=== PATIENT | female | born 1980 | race Caucasian/White ===

== ENCOUNTER 2023-12-29 08:31 | Emergency (ER) | payer OTHER, SELFPAY ==
[2023-12-29] VITALS (47 sets, daily range): BP systolic 101–127; BP diastolic 56–93; PULSE 67–96; RESP 12–31; TEMP 36.3; O2SAT 97–100
--- NOTE | ~2023-12-29 | XR_ITS ---
EXAMINATION: XR chest 2V DATE: 12/29/2023 09:06 INDICATION: Left chest pain. Hypotension and weakness. TECHNIQUE: PA and lateral views of the chest were obtained. COMPARISON: None FINDINGS: The lungs are clear with no focal airspace opacities, pulmonary edema, pleural effusion or pneumothor ax. The cardiomediastinal silhouette is normal. Cholecystectomy clips in right upper quadrant. Bilate ral breast implants. IMPRESSION: 1. No acute cardiopulmonary disease. Reviewed, dictated and finalized at location A.
--- NOTE | ~2023-12-29 | CT_ITS ---
Clinical Indication: Chest pain CT Scan of the Chest with Contrast: Technique: Contiguous sections were acquired throughout the chest after intravenous administration of 100 cc of Omnipaque 350. Dose reduction technique was used on this scan by utilizing automated expos ure control and iterative reconstruction technique. The dose-length product (DLP) was 259.15 mGy-cm. Findings: There is no evidence of any significant mediastinal, hilar or axillary lymphadenopathy. There is no f illing defect in the pulmonary arterial tree to suggest pulmonary embolus. There is no evidence of ao rtic dissection or aneurysm. There is no evidence of pleural or pericardial effusion. 3 mm fissural nodule in the left fissure noted. Lungs are otherwise clear. Images through the upper abdomen reveal no abnormalities. Impression: No evidence of pulmonary embolus, aortic dissection, or aortic aneurysm. No significant pulmonary abnormality. Reviewed, dictated and finalized at [facility]. Impression: No evidence of pulmonary embolus, aortic dissection, or aortic aneurysm. No significant pulmonary abnormality.
--- NOTE | 2023-12-29 08:33 | ECG_ITS ---
Measurements Intervals [place] Rate: 83 P: 56 CA: 138 QRS: 39 QRSD: 84 T: 44 QT: 360 QTc: 423 Interpretive Statements SINUS RHYTHM NORMAL ECG NO PREVIOUS ECG AVAILABLE FOR COMPARISON Electronically Signed On 12-29-2023 8:53:44 CDT by Mitul Self D.O.
--- NOTE | 2023-12-29 08:47 | PC.NURSE ---
Pt took ASA 325 at 0615 today for CP.
[2023-12-29 08:52] LABS: Basophils Absolute Auto 0.1 K/mm3 (0.0-0.1); Eosinophils Absolute Auto 0.2 K/mm3 (0-0.3); Eosinophils Percent Auto 2.3 % (0-4.4); Hematocrit 40.9 % (37.0-47.0); Hemoglobin 13.2 g/dL (12.0-15.0); Immature Granulocyte Absolute 0.01 K/mm3 (0.00-0.031); Immature Granulocyte Percent A 0.1 % (0-0.5); Lymphocytes Absolute Auto 2.87 K/mm3 (0.9-3.2); Lymphocytes Percent Auto 41.1 % (18.3-44.2); Mean Corpuscular HGB Conc 32.3 g/dl (32-36); Mean Corpuscular Hemoglobin 30.3 pg (26-34); Mean Platelet Volume 10.1 fl (7.4-10.4); Monocytes Absolute Auto 0.5 K/mm3 (0.1-0.6); Monocytes Percent Auto 6.9 % (2.6-8.5); Neutrophils Absolute Auto 3.4 K/mm3 (1.3-6.7); Neutrophils Percent Auto 48.6 % (45.5-73.1); Platelet Count Result 306 k/mm3 (150-375); Red Blood Count 4.35 M/mm3 (4.2-5.4); Red Cell Distribution Width 11.7 % (11.5-14.5)
[2023-12-29 09:02] LABS: Alanine Aminotransferase 43 U/L (6-35); Albumin Level 4.4 g/dL (3.5-5.1); Alkaline Phosphatase 63 U/L (38-126); Anion Gap 8 mmol/L (8-16); Aspartate Amino Transferase 37 U/L (14-36); Bilirubin,Total 0.7 mg/dL (0.2-1.3); Blood Urea Nitrogen 12 mg/dL (7-17); Calcium 9.4 mg/dL (8.4-10.2); Carbon Dioxide 22 mmol/L (22-30); Chloride 107 mmol/L (98-107); Estimated CRCL calculation 80 ml/min; Estimated Glomerular Filt Rate > 60; Glucose 97 mg/dL (65-110); Lipase 110 U/L (23-300); Potassium 3.7 mmol/L (3.4-5.0); Sodium 137 mmol/L (137-145)
[2023-12-29 09:03] LABS: INR 0.9; Prothrombin Time 12.6 Seconds (11.1-14.7)
[2023-12-29 09:04] LABS: Partial Thromboplastin Time 26.4 Seconds (22.3-36.8)
[2023-12-29 09:14] LABS: Troponin I < 0.012 ng/mL (0.000-0.034)
--- NOTE | 2023-12-29 09:37 | ED.CHESTPAIN ---
HPI - Chest Pain General Chief Complaint: Chest Pain Stated Complaint: chest pain Time Seen by Provider: 12/29/23 08:56 Source: patient Mode of arrival: ambulatory Limitations: no limitations History of Present Illness HPI narrative: Patient is a 43-year-old female who presents the ED with report of left-sided chest pain. Patient reports pain began around 6:00 a.m. this morning while she was getting ready for work. Pain present throughout her midsternal and left-sided chest, radiates into her left axillary region. Pain is intermittent, worse with movement, somewhat alleviated with rest but still intermittent sharp stabbing pains at rest. Reports tingling in her left upper extremity. Reports mild shortness of breath this morning, denies shortness breath currently. Denies recent cough or cold symptoms. Denies fevers. Denies lower extremity pain or swelling. Denies previous history of heart disease or blood clots. Related Data Allergies Allergy/AdvReac Type Severity Reaction Status Date / Time atropine Allergy Unknown Unknown Verified 12/29/23 11:30 dichloralphenazone Allergy Unknown MIGRAINE Verified 12/29/23 11:30 MED CAUSES SEIZURE - UNSURE OF DRUG diphenoxylate Allergy Unknown Unknown Verified 12/29/23 11:30 isometheptene Allergy Unknown MIGRAINE Verified 12/29/23 11:30 MED CAUSES SEIZURE - UNSURE OF DRUG sumatriptan Allergy Unknown MIGRAINE Verified 12/29/23 11:30 MED CAUSES SEIZURE - UNSURE OF DRUG Review of Systems Review of Systems: CONSTITUTIONAL: Denies fever, chills, or sweats. ENT: Denies rhinorrhea, congestion, sore throat. CARDIOVASCULAR: See HPI. RESPIRATORY: Denies cough or dyspnea. GASTROINTESTINAL: Denies abdominal pain, nausea, vomiting. NEUROLOGICAL: See HPI All systems reviewed & are unremarkable except as noted in HPI and below PMFSH Past Medical History Medical History Adult BMI 26.0-26.9 kg/sq m BMI 25.0-25.9,adult Establishing care with new doctor, encounter for History of appendicitis Polyuria Surgical History Surgical History History of breast augmentation History of cholecystectomy History of tubal ligation Family History Family History Father Alcoholic cirrhosis of liver Mother No problems noted. Sibling Lupus Depression Other Acute myocardial infarction Diabetes mellitus Family history of coronary artery disease Family history of lung cancer Hypertension Social History Social History Smoking status: Current every day smoker Tobacco type: e-cigarettes/vaping Second hand tobacco smoke exposure: Yes Smoking end date: 10/09/13 Alcohol intake: current Substance use: current Substance use type: marijuana Other substance usage details: edibles Do You Feel Safe in your Home?: Yes Lack of Transportation: No Lack of Food: Never True Current Housing: I Have Housing Concerned About Future Housing: No Difficulty Paying Gas/Electric Bills: No Difficulty Paying for Meds: No Currently Unemployed: No Education: High School Diploma/GED Difficulty w/ Childcare or Family Care: No Living arrangements: with family Occupation/Education: occupation 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 HEAD: Normocephalic, atraumatic. RESPIRATORY: Airway patent, respirations nonlabored. Clear to auscultation bilaterally, no rales, rhonchi, wheezing. No focal lung sounds. CARDIOVASCULAR: Regular rate and rhythm without murmurs, rubs, or gallops. ABDOMINAL: Soft, No tend
[2023-12-29] MEDS: ACETAMINOPHEN 500 MG TABLET 1000 MG PO (10:16)
[2023-12-29] MEDS: BELLADONNA ALK/PHENOB ELIX 10 ML, MAG HYDROX/ALUMINUM HYD/SIMETH 30 ML, LIDOCAINE HCL 2... PO (10:17)
--- NOTE | 2023-12-29 11:24 | ECG_ITS ---
Measurements Intervals [place] Rate: 68 P: 61 GA: 139 QRS: 46 QRSD: 84 T: 47 QT: 386 QTc: 411 Interpretive Statements SINUS RHYTHM BASELINE WANDER- III, V3-V6 NORMAL ECG COMPARED TO ECG 12/29/2023 08:39:10 NO SIGNIFICANT CHANGES Electronically Signed On 12-29-2023 11:51:33 CDT by Mitul Self D.O.
[2023-12-29] MEDS: diazePAM INJ (*CRX) 10 MG/2 ML SYRINGE 5 MG IV PUSH (11:34)
[2023-12-29 12:01] LABS: Troponin I < 0.012 ng/mL (0.000-0.034)
[2023-12-29] MEDS: methocarbamoL 500 MG TABLET 1000 MG PO (12:36)
--- NOTE | 2023-12-29 14:51 | ECG_ITS ---
Measurements Intervals [place] Rate: 72 P: 64 ME: 140 QRS: 56 QRSD: 72 T: 46 QT: 391 QTc: 430 Interpretive Statements SINUS RHYTHM WITH SINUS ARRHYTHMIA BASELINE ARTIFACT- I, II, III, AVL NORMAL ECG COMPARED TO ECG 12/29/2023 11:25:22 SINUS ARRHYTHMIA NOW PRESENT Electronically Signed On 12-30-2023 10:41:48 CDT by Mitul Self D.O.
[2023-12-29 15:41] LABS: Troponin I < 0.012 ng/mL (0.000-0.034)
== END 2023-12-29 14:00 | disposition home or self-care (01) ==
PROVIDERS: Preventive Medicine Aerospace Medicine; Emergency Provider Physician Assistant; PCP Family Medicine
DX: R07.89 Other chest pain (principal); S16.1XXA Strain of muscle, fascia and tendon at neck level, initial encounter; Z87.891 Personal history of nicotine dependence; Z90.49 Acquired absence of other specified parts of digestive tract; X58.XXXA Exposure to other specified factors, initial encounter
CPT/HCPCS: 36415; 71046; 71275; 80053; 83690; 84484; 85025; 85610; 85730; 93005; 96374; 99284; A9270; J3360; Q9967

== ENCOUNTER 2023-12-29 21:52 | Emergency (ER) | payer OTHER, SELFPAY ==
[2023-12-29 22:20] VITALS: BP 126/68; PULSE 82; RESP 17; TEMP 36.4; O2SAT 100
--- NOTE | 2023-12-30 01:36 | ED.EYEPROB ---
HPI - Eye Problem General Chief complaint: Eye Problems Stated complaint: B eye burning/redness Time Seen by Provider: 12/30/23 01:21 Source: patient Mode of arrival: ambulatory Limitations: no limitations History of Present Illness HPI Narrative: This is a 43 year old female that presents to the ER for evaluation of bilateral eye irritation tonight. Reports she has been having flares of this for the last couple of months. She has been seeing an eye doctor and has been on steroid drops with relief. She is out of her steroid. Has had worsening redness, tearing and pain tonight. Denies fevers, abnormal drainage or vision changes. Related Data Allergies Allergy/AdvReac Type Severity Reaction Status Date / Time atropine Allergy Unknown Unknown Verified 12/29/23 11:30 dichloralphenazone Allergy Unknown MIGRAINE Verified 12/29/23 11:30 MED CAUSES SEIZURE - UNSURE OF DRUG diphenoxylate Allergy Unknown Unknown Verified 12/29/23 11:30 isometheptene Allergy Unknown MIGRAINE Verified 12/29/23 11:30 MED CAUSES SEIZURE - UNSURE OF DRUG sumatriptan Allergy Unknown MIGRAINE Verified 12/29/23 11:30 MED CAUSES SEIZURE - UNSURE OF DRUG Review of Systems Review of Systems: CONSTITUTIONAL: Denies fever EYES: Reports redness and tearing. Denies visual changes All systems reviewed & are unremarkable except as noted in HPI and below PMFSH Past Medical History Medical History Adult BMI 26.0-26.9 kg/sq m BMI 25.0-25.9,adult Establishing care with new doctor, encounter for History of appendicitis Polyuria Surgical History Surgical History History of breast augmentation History of cholecystectomy History of tubal ligation Family History Family History Father Alcoholic cirrhosis of liver Mother No problems noted. Sibling Lupus Depression Other Acute myocardial infarction Diabetes mellitus Family history of coronary artery disease Family history of lung cancer Hypertension Social History Social History Smoking status: Current every day smoker Tobacco type: e-cigarettes/vaping Second hand tobacco smoke exposure: Yes Smoking end date: 10/09/13 Alcohol intake: current Substance use: current Substance use type: marijuana Other substance usage details: edibles Do You Feel Safe in your Home?: Yes Lack of Transportation: No Lack of Food: Never True Current Housing: I Have Housing Concerned About Future Housing: No Difficulty Paying Gas/Electric Bills: No Difficulty Paying for Meds: No Currently Unemployed: No Education: High School Diploma/GED Difficulty w/ Childcare or Family Care: No Living arrangements: with family Occupation/Education: occupation 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 HEAD: Normocephalic, atraumatic. EYES: PERRLA and EOMI. Bilateral conjunctival injection and tearing EXTREMITIES: Normal range of motion. No edema. SKIN: Warm, dry, no rash. NEURO: No focal deficits. Alert and oriented x3. PSYCH: Normal mood and affect Course Course Emergency Course: Patient agrees with plan of care Vital Signs Vital signs: Vital Signs Temperature 97.6 F 12/29/23 22:20 Pulse Rate 82 12/29/23 22:20 Respiratory Rate 17 12/29/23 22:20 Blood Pressure 126/68 12/29/23 22:20 Pulse Oximetry 100 12/29/23 22:20 Oxygen Delivery Room Air 12/29/23 22:20 Temperature 97.6 F 12/29/23 22:20 Pulse Rate 82 12/29/23 22:20 Respiratory Rate 17 12/29/23 22:20 Blood Pressure
[2023-12-30] MEDS: prednisoLONE ACETATE 1% OPHTH 5 ML 1 DROP EACH EYE (02:00)
== END 2023-12-30 02:10 | disposition home or self-care (01) ==
PROVIDERS: Emergency Provider Physician Assistant; PCP Family Medicine
DX: H57.89 Other specified disorders of eye and adnexa (principal); Z90.49 Acquired absence of other specified parts of digestive tract; Z87.891 Personal history of nicotine dependence
CPT/HCPCS: 99283; A9270

== ENCOUNTER 2024-06-04 15:27 | Outpatient (CLI) | payer OTHER, SELFPAY ==
--- NOTE | ~2024-06-04 | MM_ITS ---
EXAMINATION: MM scrn steffi implant BI w marb[place] HISTORY: Screening mammogram TECHNIQUE: Craniocaudal and mediolateral oblique 3-D tomosynthesis images with implant displacement a nd synthetic 2-D images were generated. Craniocaudal and mediolateral oblique views of the breasts wi thout implant displacement were obtained using full field digital mammography. CAD analysis was submi tted and interpreted. COMPARISON: No prior mammogram is available for comparison at this institution. BREAST PARENCHYMAL COMPOSITION: Dense: The breasts are heterogeneously dense, which may obscure small masses FINDINGS: There is no evidence of suspicious mass, calcification, or architectural distortion to sugg est malignancy in either breast. There has been no suspicious interval change. IMPRESSION: 1. No mammographic evidence of malignancy. 2. Recommend routine screening mammography in one year. BI-RADS Category 1: Negative Reviewed, dictated and finalized at location B.
== END 2024-06-04 15:28 ==
PROVIDERS: PCP Obstetrics & Gynecology Gynecology; Visit Provider Obstetrics & Gynecology Gynecology
DX: Z12.31 Encounter for screening mammogram for malignant neoplasm of breast (principal)
CPT/HCPCS: 77063; 77067

== ENCOUNTER 2024-06-13 07:02 | Day surgery (SDC) | payer OTHER, SELFPAY ==
[2024-06-04 15:11] VITALS: BMI 24.7
[2024-06-05 13:21] VITALS: BMI 25.0
[2024-06-13 08:13] VITALS: BP 115/58; PULSE 83; RESP 17; TEMP 37.2; O2SAT 100; BMI 24.7
--- NOTE | 2024-06-13 08:16 | PM.HPGS ---
History of Present Illness History of Present Illness Consent: Risks, benefits, and alternatives have been discussed and questions answered. Patient agrees to proceed with procedure. Chief complaint: Alteration of bowel habit Narrative: Sarah Casas is a 44 year old female presents for colonoscopy. Patient has a long history of irritable bowel syndrome. She describes diarrhea alternating with constipation. Patient denies any blood in her stools. Her weight has remained stable. Family history is significant her mother and sister have had colon polyps. Patient does not take any particular medications. She is today for colonoscopy on referral from primary care service. Review of Systems Review of Systems: All systems reviewed & are unremarkable except as noted in HPI and below PMFSH Past Medical History Medical History Establishing care with new doctor, encounter for History of appendicitis Polyuria Surgical History Surgical History History of breast augmentation History of cholecystectomy History of tubal ligation Family History Family History Father Alcoholic cirrhosis of liver Mother No problems noted. Sibling Lupus Depression Other Acute myocardial infarction Diabetes mellitus Family history of coronary artery disease Family history of lung cancer Hypertension Social History Social History Smoking packs per day: 0.5 Smoking cigarettes per day: 10.0 Years smoked: 30 Smoking pack-years: 15.00 Smoking status: Current every day smoker Tobacco type: cigarettes and e-cigarettes/vaping Second hand tobacco smoke exposure: Yes Smoking end date: 10/09/13 Alcohol intake: current Drinks per week: 1 Substance use: current Substance use type: marijuana Other substance usage details: 1-2 GUMMIES PER WEEK Do You Feel Safe in your Home?: Yes Lack of Transportation: No Lack of Food: Never True Current Housing: I Have Housing Concerned About Future Housing: No Difficulty Paying Gas/Electric Bills: No Difficulty Paying for Meds: No Currently Unemployed: No Education: High School Diploma/GED Difficulty w/ Childcare or Family Care: No Living arrangements: alone Occupation/Education: occupation Additional occupation/education comments: [employer] Gender identity (if verbalized by the patient): Female Spiritual care concerns: No Meds Home Medications and Allergies Home Medications Medication Instructions Recorded Confirmed Type prednisolone acetate 1 % eye 1 drp EACH EYE TID 1 week #10 mL 12/30/23 06/13/24 Rx drops,suspension hydroxychloroquine 200 mg tablet 200 mg PO DAILY 03/22/24 06/13/24 History diazepam 2 mg tablet (Valium) 2 mg PO BID PRN anxiety #30 tabs 04/22/24 06/13/24 Rx sodium,potassium,mag sulfates 17.5 See Rx Instructions PO .COMPLEX 06/04/24 Rx gram-3.13 gram-1.6 gram oral soln #354 mL (Suprep Bowel Prep Kit) ferrous sulfate 325 mg (65 mg 325 mg PO DAILY 06/06/24 06/13/24 History iron) tablet (Iron (ferrous sulfate)) multivitamin with minerals-folic 1 tablet PO DAILY 06/06/24 06/13/24 History acid 0.4 mg tablet turmeric 125 mg-fahad root 6 1 tablet PO DAILY 06/06/24 06/13/24 History mg-black pepper 50 mcg chewable tablet vitamin E mixed 400 unit capsule 400 unit PO DAILY 06/06/24 06/13/24 History Allergies Allergy/AdvReac Type Severity Reaction Status Date / Time dichloralphenazone Allergy Unknown MIGRAINE Verified 06/13/24 08:10 MED CAUSES SEIZURE - UNSURE OF DRUG diphenoxylate Allergy Unknown Unknown Verified 06/13/24 08:10 isometheptene Allergy Unknown MIGRAINE Verified 06/13/24 08:10 MED CAUSES SEIZURE - UNSURE OF DRUG sumat
[2024-06-13] MEDS: LACTATED RINGERS 1,000 ML 150 ML IV CONT (08:24)
--- NOTE | 2024-06-13 08:27 | WPDANESEPPF ---
Anes - Initial Pre Proc Eval Procedure: Operation Date: 06/13/24 09:30 Proposed Procedures p Diagnostic Colonoscopy - Kendall Skinner MD Date/Time: 06/13/24 08:27 Surgeon: Kendall Skinner MD Pre Op Diagnosis: Alteration of bowel habit Patient Data Age: 44 Gender: F Height: 1.63 m Weight: 65.35 kg Last Vital Signs Temp 37.2 C 06/13/24 08:13 Pulse 83 06/13/24 08:13 Resp 17 06/13/24 08:13 BP 115/58 L 06/13/24 08:13 Pulse Ox 100 06/13/24 08:13 O2 Del Method Room Air 06/13/24 08:13 Allergies Allergy/AdvReac Type Severity Reaction Status Date / Time dichloralphenazone Allergy Unknown MIGRAINE Verified 06/13/24 08:10 MED CAUSES SEIZURE - UNSURE OF DRUG diphenoxylate Allergy Unknown Unknown Verified 06/13/24 08:10 isometheptene Allergy Unknown MIGRAINE Verified 06/13/24 08:10 MED CAUSES SEIZURE - UNSURE OF DRUG sumatriptan Allergy Unknown MIGRAINE Verified 06/13/24 08:10 MED CAUSES SEIZURE - UNSURE OF DRUG Home Medications Medication Instructions Recorded Confirmed Type prednisolone acetate 1 % eye 1 drp EACH EYE TID 1 week #10 mL 12/30/23 06/13/24 Rx drops,suspension hydroxychloroquine 200 mg tablet 200 mg PO DAILY 03/22/24 06/13/24 History diazepam 2 mg tablet (Valium) 2 mg PO BID PRN anxiety #30 tabs 04/22/24 06/13/24 Rx sodium,potassium,mag sulfates 17.5 See Rx Instructions PO .COMPLEX 06/04/24 Rx gram-3.13 gram-1.6 gram oral soln #354 mL (Suprep Bowel Prep Kit) ferrous sulfate 325 mg (65 mg 325 mg PO DAILY 06/06/24 06/13/24 History iron) tablet (Iron (ferrous sulfate)) multivitamin with minerals-folic 1 tablet PO DAILY 06/06/24 06/13/24 History acid 0.4 mg tablet turmeric 125 mg-fahad root 6 1 tablet PO DAILY 06/06/24 06/13/24 History mg-black pepper 50 mcg chewable tablet vitamin E mixed 400 unit capsule 400 unit PO DAILY 06/06/24 06/13/24 History Patient hx anesthesia problems: none Family hx anesthesia problems: none Results Review: All pre-operative results and documents have been reviewed as part of the pre-operative evaluation. [facility] Past Medical History Medical History (Updated 06/13/24 @ 08:28 by Tom Chowdhury CRNA) Establishing care with new doctor, encounter for History of appendicitis Lupus (systemic lupus erythematosus) Polyuria Surgical History Surgical History History of breast augmentation History of cholecystectomy History of tubal ligation Family History Family History Father Alcoholic cirrhosis of liver Mother No problems noted. Sibling Lupus Depression Other Acute myocardial infarction Diabetes mellitus Family history of coronary artery disease Family history of lung cancer Hypertension Social History Social History Smoking packs per day: 0.5 Smoking cigarettes per day: 10.0 Years smoked: 30 Smoking pack-years: 15.00 Smoking status: Current every day smoker Tobacco type: cigarettes and e-cigarettes/vaping Second hand tobacco smoke exposure: Yes Smoking end date: 10/09/13 Alcohol intake: current Drinks per week: 1 Substance use: current Substance use type: marijuana Other substance usage details: 1-2 GUMMIES PER WEEK Do You Feel Safe in your Home?: Yes Lack of Transportation: No Lack of Food: Never True Current Housing: I Have Housing Concerned About Future Housing: No Difficulty Paying Gas/Electric Bills: No Difficulty Paying for Meds: No Currently Unemployed: No Education: High School Diploma/GED Difficulty w/ Childcare or Family Care: No Living arrangements: alone Occupation/Education: occupation Additional occupation/education comments: [employer] Gender identity (if verbalized by the patient):
[2024-06-13 08:50] VITALS: BP 96/63; PULSE 78; RESP 14; O2SAT 99
--- NOTE | 2024-06-13 08:53 | WPDANESPN ---
Anes - Prog Note Post-Op Date/Time: 06/13/24 08:53 Cardiovascular status: normal Respiratory status: normal Airway patency: baseline Mental status: baseline Post-Op hydration status: normal Vital Signs: Last Vital Signs Temp 37.2 C 06/13/24 08:13 Pulse 83 06/13/24 08:13 Resp 17 06/13/24 08:13 BP 115/58 L 06/13/24 08:13 Pulse Ox 100 06/13/24 08:13 O2 Del Method Room Air 06/13/24 08:13 Pain Score (VAS): 0 I/O: Intake & Output 06/12/24 06/13/24 06/13/24 23:59 07:59 15:59 Intake Total 400 Balance 400 Post-procedural complaints: none Patient Feedback: Patient satisfied with anesthetic care.
[2024-06-13 09:00] VITALS: BP 118/91; PULSE 72; RESP 16; O2SAT 100
[2024-06-13 09:10] VITALS: BP 104/58; PULSE 79; RESP 16; O2SAT 100
== END 2024-06-13 09:30 | disposition home or self-care (01) ==
PROVIDERS: PCP Family Medicine; Visit Provider Internal Medicine Gastroenterology
PROC: 0DJD8ZZ Inspection of Lower Intestinal Tract, Via Natural or Artificial Opening Endoscopic (ICD-10-PCS; CPT 45378; principal; 2024-06-13 09:30)
DX: Z83.718 Family history of other colon polyps (principal); K59.00 Constipation, unspecified; D12.8 Benign neoplasm of rectum; R19.7 Diarrhea, unspecified
CPT/HCPCS: 45380

== ENCOUNTER 2024-06-13 15:01 | Outpatient (NON) | payer OTHER, SELFPAY | END 2024-06-13 15:02 | disposition home or self-care (01) | LOC: ANHLAB 15:02 | PROVIDERS: PCP Obstetrics & Gynecology Gynecology; Visit Provider Internal Medicine Gastroenterology | DX: D12.8 Benign neoplasm of rectum (principal); K58.9 Irritable bowel syndrome, unspecified | CPT/HCPCS: 88305 ==

== ENCOUNTER 2024-06-17 15:44 | Outpatient (CLI) | payer OTHER, SELFPAY ==
--- NOTE | ~2024-06-17 | US_ITS ---
US pelvic complete Ordering provider: Kyara Hong MD History: . Excessive and frequent menstruation with irregular cycle . Comparison: None. Technique: Transabdominal and endovaginal ultrasound of the pelvis (Doppler ultrasound interrogation techniques used as needed for this exam.) FINDINGS: CERVIX: Normal. UTERUS: Measures 9.3x 4.7x 5.7 cm in length which is within normal limits and is anteverted. No myom etrial masses. ENDOMETRIUM: Normal in thickness measuring 11.6 mm. (Note: the premenopausal endometrium may measure up to 16 mm when in the secretory phase.) No endometrial masses, cysts or fluid. CUL DE SAC: No free fluid. RIGHT OVARY: Normal in size measuring 2.2x 2.6x 1.9 cm.. Normal echotexture. Doppler vascular flow pr esent. LEFT OVARY: Normal in size measuring 2.7x 2.9x 2.3 cm. Normal echotexture. Doppler vascular flow pres ent. ADNEXA: Normal. No mass. IMPRESSION: Slightly thickened endometrium. Clinical correlation with menstrual stage is advised. Otherwise, normal pelvic ultrasound. Reviewed, dictated and finalized at location A. IMPRESSION: Slightly thickened endometrium. Clinical correlation with menstrual stage is ad vised. Otherwise, normal pelvic ultrasound.
== END 2024-06-17 15:45 | disposition home or self-care (01) ==
PROVIDERS: PCP Obstetrics & Gynecology Gynecology; Visit Provider Obstetrics & Gynecology Gynecology
DX: R93.89 Abnormal findings on diagnostic imaging of other specified body structures (principal); N92.1 Excessive and frequent menstruation with irregular cycle
CPT/HCPCS: 76856

== ENCOUNTER 2024-08-21 16:12 | Emergency (ER) | payer OTHER, SELFPAY ==
[2024-08-21 16:33] VITALS: BP 118/67; PULSE 70; RESP 20; TEMP 36.4; O2SAT 100
--- NOTE | 2024-08-21 16:43 | ED_ITS ---
HPI - URI/Sore Throat General Chief Complaint: Upper Respiratory Infection Stated Complaint: coughing Time Seen by Provider: 08/21/24 16:43 Source: patient Mode of arrival: ambulatory Limitations: no limitations History of Present Illness HPI Narrative: 44-year-old female presents complaint of cough, chest congestion, fatigue, body aches, chills for 4 days. Patient reports headaches from coughing. History of vaping for 10 years, prior to that she smoked cigarettes. Denies nausea vomiting diarrhea. Patient has been outside for long period of time due to striking at work, has been around [employer] [employer]. All systems reviewed and negative except as noted above. Related Data Allergies Allergy/AdvReac Type Severity Reaction Status Date / Time dichloralphenazone Allergy Unknown MIGRAINE Verified 06/13/24 08:10 MED CAUSES SEIZURE - UNSURE OF DRUG diphenoxylate Allergy Unknown Unknown Verified 06/13/24 08:10 isometheptene Allergy Unknown MIGRAINE Verified 06/13/24 08:10 MED CAUSES SEIZURE - UNSURE OF DRUG sumatriptan Allergy Unknown MIGRAINE Verified 06/13/24 08:10 MED CAUSES SEIZURE - UNSURE OF DRUG Review of Systems Review of Systems: CONSTITUTIONAL: Denies fever . Reports chills, or sweats. EYES: Denies visual changes, redness, or discharge. ENT: Denies rhinorrhea, congestion, sore throat, or otalgia. CARDIOVASCULAR: Denies chest pain, palpitations, or edema. RESPIRATORY: reports cough and dyspnea with exertion. GASTROINTESTINAL: Denies abdominal pain, nausea, vomiting, or diarrhea. GENITOURINARY: Denies dysuria or hematuria. SKIN: Denies rash or itching. MUSCULOSKELETAL: Denies back pain, joint pain. Reports myalgia. NEUROLOGIC: reports headache. Denies numbness, or weakness. PSYCHIATRIC: Denies anxiety or depression. All other systems reviewed are negative, except as documented in HPI. [facility] Past Medical History Medical History (Updated 08/21/24 @ 17:15 by Olga Ortez NP) Establishing care with new doctor, encounter for History of appendicitis Lupus (systemic lupus erythematosus) Polyuria Surgical History Surgical History History of breast augmentation History of cholecystectomy History of tubal ligation Family History Family History Father Alcoholic cirrhosis of liver Mother No problems noted. Sibling Lupus Depression Other Acute myocardial infarction Diabetes mellitus Family history of coronary artery disease Family history of lung cancer Hypertension Social History Social History Smoking packs per day: 0.5 Smoking cigarettes per day: 10.0 Years smoked: 30 Smoking pack-years: 15.00 Smoking status: Current every day smoker Tobacco type: cigarettes and e-cigarettes/vaping Second hand tobacco smoke exposure: Yes Smoking end date: 10/09/13 Alcohol intake: current Drinks per week: 1 Substance use: current Substance use type: marijuana Other substance usage details: 1-2 GUMMIES PER WEEK Do You Feel Safe in your Home?: Yes Lack of Transportation: No Lack of Food: Never True Current Housing: I Have Housing Concerned About Future Housing: No Difficulty Paying Gas/Electric Bills: No Difficulty Paying for Meds: No Currently Unemployed: No Education: High School Diploma/GED Difficulty w/ Childcare or Family Care: No Living arrangements: alone Occupation/Education: occupation 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 There is no relevant family history pertinent to the presenting complaint. Exam Narrative: GENERAL: This is a well-nourished, well-developed patient, Ill-appearing but no acute distress HEAD: normocephalic, atraumatic. EYES: PERRL. Sclera clear/white. Vision is grossly intact. EARS: External ears normal, auditory canals clear and without drainage, TMs normal without perforation. Hearing grossly intact. NOSE: External nose normal with no obvious nasal discharge, nares without redness, no rhinorrhea. THROAT: Mucous membranes moist, posterior pharynx clear. NECK: Neck supple, non-tender without lymphadenopathy, masses or thyromegaly. CARDIOVASCULAR: Regular rate and rhythm without murmurs, gallops, or rubs. RESPIRATORY: decreased throughout all lung [place]. No wheezes, rales, or rhonchi. SKIN: warm, Dry, intact with no suspicious lesions or rash, good texture and turgor. NEURO: awake, alert, and oriented to person, place and time. There were no obvious focal neurologic abnormalities. EXTREMITIES: No joint tenderness, effusion, or edema noted. Course Course Level of Care: Express Care Visit Vital Signs Vital signs: Vital Signs Temperature 36.4 C L 08/21/24 16:33 Pulse Rate 70 08/21/24 16:33 Respiratory Rate 20 08/21/24 16:33 Blood Pressure 118/67 08/21/24 16:33 Pulse Oximetry 100 08/21/24 16:33 Oxygen Delivery Room Air 08/21/24 16:33 Temperature 36.4 C L 08/21/24 16:33 Pulse Rate 70 08/21/24 16:33 Respiratory Rate 20 08/21/24 16:33 Blood Pressure 118/67 08/21/24 16:33 Pulse Oximetry 100 08/21/24 16:33 Oxygen Delivery Room Air 08/21/24 16:33 reviewed MDM - URI/Sore Throat MDM Narrative Medical decision making narrative: will treat patient with antibiotic due to exam findings. Nontoxic, oxygen saturation 100% room air. Patient is aware of diagnosis, understands and agrees to treatment plan. Anticipatory guidance given. Patient agrees to follow-up as directed and is aware of reasons to seek care at the emergency department. Portions of this record may have been created with voice recognition software Differential Diagnosis Differential diagnosis: Likely upper respiratory infection, sinusitis, viral infection, bronchitis and influenza Lab Data Labs: Lab Results 08/21/24 08/21/24 08/21/24 Range/Units 17:04 17:11 17:12 POC Influenza A Ag Negative (Negative) POC Influenza B Ag Negative (Negative) POC SARS CoV-2 Ag Negative (Negative) POC Grp A Strep Screen Negative (Negative) Discharge Plan Discharge Clinical Impression: Upper respiratory infection with cough and congestion, Exposure to pneumonia Patient Disposition: Home, Self-Care Condition: Stable Instructions: Antibiotic Form, Upper Respiratory Infection (DC) Additional Instructions: your COVID, influenza and strep test were negative today. Take medications as prescribed to treat symptoms. Take [id number] Mucinex as directed on packaging. Take Tylenol or ibuprofen every 6-8 hours as needed for pain. Drink at least 64 oz of water a day. Follow-up with your doctor if symptoms are not improving. Prescriptions: New albuterol sulfate 90 mcg/actuation HFA aerosol inhaler 2 puff inhalation Q4-6H PRN (Reason: shortness of breath or wheezing) Qty: 8.5 0RF (DME) Aerochamber Plus Z Stat Spacer See Rx Instructions .Route Qty: 1 0RF Rx Instructions: As directed doxycycline hyclate 100 mg capsule 100 mg PO BID 7 Days Qty: 14 0RF benzonatate 200 mg capsule 200 mg PO TID PRN (Reason: cough) Qty: 20 0RF prednisone 20 mg tablet 40 mg PO DAILY 5 Days Qty: 10 0RF No Action diazepam [Valium] 2 mg tablet 2 mg PO BID PRN (Reason: anxiety) Qty: 30 0RF Follow-up/Referrals: Destin Cedeño MD [Primary Care Provider] - Stand Alone Forms: Work/School Release IP Time of Disposition: 17:15
[2024-08-21 17:06] LABS: EDSTREPNEGPOS1 Negative (Negative)
[2024-08-21 17:13] LABS: EDINFLUASCREEN Negative (Negative); EDINFLUBSCREEN Negative (Negative)
[2024-08-21 17:14] LABS: EDCOVIDSCREEN Negative (Negative)
== END 2024-08-21 17:34 | disposition home or self-care (01) ==
PROVIDERS: Emergency Provider Nurse Practitioner Family; PCP Family Medicine
DX: J06.9 Acute upper respiratory infection, unspecified (principal); Z20.89 Contact with and (suspected) exposure to other communicable diseases; Z20.822 Contact with and (suspected) exposure to COVID-19; F17.290 Nicotine dependence, other tobacco product, uncomplicated; M32.9 Systemic lupus erythematosus, unspecified
CPT/HCPCS: 87081; 87426; 87804; 87880; 99213; G0463